=== PATIENT | male | born 1965 | race Caucasian/White ===

== ENCOUNTER 2017-12-25 19:00 | Emergency (ER) | payer MEDICAID ==
[~2017-12-25] VITALS: Ht 177.8 cm; Wt 77.3 kg
[2017-12-25] MEDS ORDERED: DIPHENHYDRAMINE 50 MG/ML, 1ML ONE (19:49)
[2017-12-25] MEDS ORDERED: KETOROLAC 30 MG/1 ML ONE (19:49)
[2017-12-25] MEDS ORDERED: PROCHLORPERAZINE 5 MG/ML, 2ML ONE (19:49)
[2017-12-25] MEDS ORDERED: KETOROLAC 30 MG/1 ML IVPush ONE (20:00)
[2017-12-25] MEDS ORDERED: DIPHENHYDRAMINE 50 MG/ML, 1ML IVPush ONE (20:00)
[2017-12-25] MEDS ORDERED: SODIUM CHLORIDE 0.9% 1,000ML IVBOLUS ONE (20:00)
[2017-12-25] MEDS ORDERED: SODIUM CHLORIDE FLUSH 10ML SYR IVF ONE (20:00)
[2017-12-25] MEDS ORDERED: PROCHLORPERAZINE 5 MG/ML, 2ML IVPush ONE (20:00)
[2017-12-25 20:49] VITALS: BP 155/85
== END 2017-12-25 21:18 | disposition home or self-care (01) ==
LOC: ED 20:16
DX: G43.909 Migraine, unspecified, not intractable, without status migrainosus (principal); R11.0 Nausea
CPT/HCPCS: 96374; 96375; 99284; J0780; J1200; J1885; J7030